=== PATIENT | female | born 1965 | race Caucasian/White ===

== ENCOUNTER 2020-05-15 13:06 | Outpatient (REF) | payer MEDICAID, SELFPAY | END 2020-05-15 13:07 | disposition home or self-care (01) | LOC: HO.LAB 13:06 | PROVIDERS: Visit Provider Internal Medicine | DX: Z20.822 Contact with and (suspected) exposure to COVID-19 (principal) | CPT/HCPCS: 36415; C9803; U0003; U0005 ==

== ENCOUNTER → 2022-10-08 11:18 | Outpatient (BNVA) | payer MEDICAID, SELFPAY | PROVIDERS: PCP Registered Nurse; Visit Provider Surgery Vascular Surgery | DX: I83.12 Varicose veins of left lower extremity with inflammation (principal) | CPT/HCPCS: 99202 ==

== ENCOUNTER 2023-02-12 17:52 | Outpatient (REF) | payer MEDICAID, SELFPAY ==
[2023-02-15 05:08] LABS: HPV mRNA E6/E7 rflx Not Detected (Not Detected)
== END 2023-02-12 17:53 | disposition home or self-care (01) ==
LOC: HO.HHCLNP 17:52
PROVIDERS: Visit Provider Advanced Practice Midwife
DX: Z12.4 Encounter for screening for malignant neoplasm of cervix (principal)
CPT/HCPCS: 36415; 87491; 87591; 87624; 87661; 88142

== ENCOUNTER 2023-04-04 12:54 | Outpatient (REF) | payer MEDICAID, SELFPAY ==
--- NOTE | ~2023-04-04 | US_ITS ---
EXAMINATION: US PELVIS CLINICAL INFORMATION: Postmenopausal bleeding. COMPARISON: 09/24/2012 TECHNIQUE: Ultrasound of the pelvis is performed using both transabdominal and transvaginal transducers along with Doppler. Transvaginal imaging is performed due to inadequate visualization transabdominally. FINDINGS: Uterus: The uterus is anteverted. The uterus measures 5.2 x 2.4 x 3.6 cm. Uterine echotexture is heterogeneous. The endometrial stripe measures 0.4 cm in thickness. Adnexa: Right ovary is not visualized. Left ovary measures 1.4 x 0.9 x 0.8 cm. No free fluid in pelvis. US/US pelvic and transvaginal IMPRESSION: Unremarkable pelvic ultrasound.
== END 2023-04-04 12:55 | disposition home or self-care (01) ==
LOC: HO.US 12:54
PROVIDERS: PCP Registered Nurse; Visit Provider Advanced Practice Midwife
DX: N95.0 Postmenopausal bleeding (principal)
CPT/HCPCS: 76830; 76856

== ENCOUNTER 2023-06-24 09:44 | Outpatient (AMB) | payer MEDICAID, SELFPAY ==
--- NOTE | 2023-06-24 10:38 | A.OFFVIS_ITS ---
Intake Vital Signs 06/24/23 10:41 Height 5 ft 1 in Weight 140 lb BMI 26.4 BP 132/72 Intake Visit Reasons: PMB Intake Note: spotting x 2 months ago Cryptologic Linguist Required: Yes Cryptologic Linguist Language: R[place] Information Interpreted: non-clinical & clinical Assistant Manager Retail: Assistant Manager Retail Present (Diana PEÑA) Accompanied by: Self / Same As Patient Allergies acetaminophen [From TYLENOL] Allergy (Intermediate, Verified 06/24/23 10:43) CANNOT TAKE DUE TO CIRRHOSIS Post menopausal: Yes HPI HPI Comments History of Present Illness Details Presenting referred from [facility] after an episode of postmenopausal bleeding. Pelvic ultrasound done on 04/10/2023 showed the following: Uterus: The uterus is anteverted. The uterus measures 5.2 x 2.4 x 3.6 cm. Uterine echotexture is heterogeneous. The endometrial stripe measures 0.4 cm in thickness. Adnexa: Right ovary is not visualized. Left ovary measures 1.4 x 0.9 x 0.8 cm. No free fluid in pelvis. Last co testing was negative in 03/06 [facility] Medical History Hyperlipidemia HTN (hypertension) Diabetes Surgical History History of bladder surgery Hx of tubal ligation Family History Father Diabetes HTN (hypertension) Mother Diabetes HTN (hypertension) Social History Household Members: None Housing: Apartment Alcohol intake: current Alcohol intake frequency: holidays/special occasions only Patient Tobacco Use Status: Current everyday Tobacco user Cigarettes Per Day: 4 Years Smoked: 20 Current occupational status: disabled Sexually active: No Sexual orientation: Straight/Heterosexual Gender identity: Female Female Reproductive History Menstrual Total pregnancies: 4 Full term: 4 Number of Living Children: 4 Date of last pap smear: 02/13/23 Review of Systems Const All systems reviewed & are unremarkable except as noted in HPI and below Physical Exam Vital Signs: Last Vital Signs BP 132/72 06/24/23 10:41 BMI result Body Mass Index 26.4 General: Yes no CVA tenderness External Female Exam: normal external appearance and normal appearance of the urethra Speculum Exam - Vagina: normal appearance of the vagina, normal palpation, no lesions and no masses Speculum Exam - Cervix: normal appearance of the cervix, normal palpation, no lesions, no masses and nontender Bimanual exam- vagina & uterus: normal bimanual exam, normal palpation, uterine size normal, normal palpation, uterine shape normal, No Cervical tenderness present and non-tender Bimanual Exam- Adnexa, other: normal adnexae Back/Spine/Pelvis Back: no CVA tenderness Assessment & Plan Assessment & Plan (1) Postmenopausal bleeding: Code(s): N95.0 - Postmenopausal bleeding Plan: Discussed with the patient the results of the pelvic ultrasound showing an endometrial stripe thickness of 4 mm. Explained to the patient with an endometrial stripe of 4 mm &/or less, there is a high negative predictive value in detecting endometrial pathology including endometrial hyperplasia, polyps or malignancy. Therefore, there is no indication for endometrial sampling. Discussed with the patient the sensitivity, specificity, and positive and the negative predictive value of using ultrasound in detecting endometrial pathology. The patient was instructed to call if bleeding recurs, will proceed with endometrial sampling out endometrial pathology. All questions were answered and the patient verbalized understanding and agreed with the plan. Coding Level of Care Code New Pt Level 3 (40439) Diagnoses Postmenopausal bleeding N95.0
[2023-06-24 10:41] VITALS: BP 132/72; BMI 26.4
== END 2023-06-25 07:52 | disposition home or self-care (01) ==
LOC: HO.HWS 09:45
PROVIDERS: PCP Registered Nurse; Visit Provider Obstetrics & Gynecology
DX: N95.0 Postmenopausal bleeding (principal)
CPT/HCPCS: 99203

== ENCOUNTER → 2023-06-24 09:44 | Outpatient (BNVA) | payer MEDICAID, SELFPAY | PROVIDERS: PCP Registered Nurse; Visit Provider Obstetrics & Gynecology | DX: N95.0 Postmenopausal bleeding (principal) | CPT/HCPCS: 99202 ==

== ENCOUNTER 2024-02-25 09:59 | Outpatient (REF) | payer MEDICAID, SELFPAY ==
[2024-02-25 10:52] LABS: MANUAL DIFF FLAG NO
[2024-02-25 11:03] LABS: Basophils Absolute Auto 0.1 X10*3/uL (0.0-0.2); Basophils Percent Auto 0.8 % (0-2); Eosinophils Absolute Auto 0.3 X10*3/uL (0.0-0.4); Eosinophils Percent Auto 4.5 % (0-4); Hematocrit 40.3 % (37.0-47.0); Hemoglobin 12.9 g/dl (12.0-16.0); Imm Gran Abs Auto 0.02 X10*3/uL (0.00-0.03); Imm Gran Pct Auto 0.3 % (0.0-0.4); Lymphocytes Absolute Auto 1.8 X10*3/uL (1.2-4.9); Lymphocytes Percent Auto 24.9 % (20-40); Mean Corpuscular Hemoglobin 26.2 pg (27.0-33.0); Mean Corpuscular Volume 81.7 fL (80.0-98.0); Monocytes Absolute Auto 0.7 X10*3/uL (0.1-1.2); Monocytes Percent Auto 9.5 % (2-11); Neutrophils Absolute Auto 4.3 x10*3/uL (2.0-8.3); Red Blood Count 4.93 X10*6/uL (4.20-5.50); Red Cell Distribution Width 14.6 % (11.0-16.0); White Blood Count 7.2 X10*3/uL (4.8-10.8)
[2024-02-25 11:33] LABS: Platelet Count 117 X10*3/uL (160-400)
[2024-02-25 11:35] LABS: HBS Num1 118.18 mIU/mL (0-7.99); HBc Num1 7.14 S/CO (0.00-0.79); HBsAGNum1 0.35 S/CO (0.00-0.99); HIV AB/AG Nonreactive (Nonreactive); HIV Num 1 0.06 S/CO (0.00-0.99); Hepatitis B Surface Antigen Negative (Negative); ~Hepatitis B Surface Antibody REACTIVE (Nonreactive)
[2024-02-25 11:43] LABS: Alanine Aminotransferase 55 U/L (0-31); Alkaline Phosphatase 135 U/L (39-117); Anion Gap 12 (12-20); Aspartate Amino Transferase 53 U/L (5-31); Bilirubin Total 0.5 mg/dL (0.0-1.0); Blood Urea Nitrogen 11 mg/dL (9-16); C Reactive Protein 0.31 mg/dL (< or = 0.50); Calcium 9.9 mg/dL (8.4-10.2); Carbon Dioxide 28 mmol/L (22-29); Chloride 104 mmol/L (96-108); Cholesterol 158 mg/dL (<200); Erythrocyte Sedimentation Rate 18 MM/HR (0-20); Estimated Glomerular Filt Rate > 60; Glucose Random 99 mg/dL (60-115); HDL Cholesterol 44 mg/dL (>40); LDL Cholesterol Calculated 90 mg/dL (<100); Potassium 5.1 mmol/L (3.3-5.1); Sodium 139 mmol/L (135-145); TSH reflex Free T4 0.62 uIU/mL (0.32-4.0); Total Protein 7.8 g/dL (6.5-8.0); Triglycerides 123 mg/dL (<150)
[2024-02-25 11:51] LABS: Creatinine Urine 81.77 mg/dL; Microalbum/Creatinine Ratio Ur 12.2 ug/mg cr (<30)
[2024-02-25 12:37] LABS: HBc Num2 6.75 S/CO
[2024-02-25 12:38] LABS: Hepatitis B Core Antibody Reactive (Nonreactive)
[2024-02-25 13:34] LABS: CT PCR NOT DETECTED (Not Detect.); NG PCR NOT DETECTED (Not Detect.)
[2024-02-27 09:33] LABS: RPR Rapid Plasma Reagin NON-REACTIVE (NON-REACTIVE)
[2024-02-27 15:10] LABS: HCV Log PCR <1.18 NOT DETECTED Log IU/mL (NOT DETECTED); HepC Viral Load <15 NOT DETECTED IU/mL (NOT DETECTED)
== END 2024-02-25 10:00 | disposition home or self-care (01) ==
LOC: HO.HHCL 09:59
PROVIDERS: Visit Provider Registered Nurse
DX: Z00.00 Encounter for general adult medical examination without abnormal findings (principal); Z11.4 Encounter for screening for human immunodeficiency virus [HIV]
CPT/HCPCS: 80053; 80061; 82043; 82570; 84443; 85025; 85652; 86140; 86592; 86704; 86706; 87340; 87389; 87491; 87522; 87591